=== PATIENT | female | born 1950 | race Caucasian/White ===

== ENCOUNTER → 2023-09-25 | Outpatient (CLI) | payer MEDICARE | END | disposition home or self-care (01) | LOC: RESCLI 10:46 | PROVIDERS: ATTEND Internal Medicine | DX: E11.9 Type 2 diabetes mellitus without complications (principal); E55.9 Vitamin D deficiency, unspecified; K21.9 Gastro-esophageal reflux disease without esophagitis; I10 Essential (primary) hypertension; E78.5 Hyperlipidemia, unspecified; E03.9 Hypothyroidism, unspecified; M79.7 Fibromyalgia; Z88.0 Allergy status to penicillin; Z88.8 Allergy status to other drugs, medicaments and biological substances; K76.0 Fatty (change of) liver, not elsewhere classified; Z98.890 Other specified postprocedural states; Z79.899 Other long term (current) drug therapy; Z79.84 Long term (current) use of oral hypoglycemic drugs; Z79.82 Long term (current) use of aspirin ==

== ENCOUNTER → 2024-11-14 | Outpatient (CLI) | payer MEDICARE ==
[~2024-11-14] MED LIST: IOHEXOL 300 MG/ML 100 ML VIAL IV ONE
== END | disposition home or self-care (01) ==
LOC: LAB 01:41 → CT 01:41
PROVIDERS: ATTEND Family Medicine
DX: T14.8XXA Other injury of unspecified body region, initial encounter (principal); S30.0XXA Contusion of lower back and pelvis, initial encounter; X58.XXXA Exposure to other specified factors, initial encounter; Y93.89 Activity, other specified; Y92.89 Other specified places as the place of occurrence of the external cause; Y99.8 Other external cause status